=== PATIENT | female | born 2000 | race African-American/Black ===

== ENCOUNTER 2020-08-02 06:53 | Outpatient (NON) | payer BC, OTHER, SELFPAY ==
[2020-08-03 06:44] LABS: SARS-CoV-2 RNA PCR Negative
== END 2020-08-02 06:54 ==
PROVIDERS: PCP Nurse Practitioner Psychiatric/Mental Health; Visit Provider Registered Nurse
DX: R05 Cough (principal); R09.89 Other specified symptoms and signs involving the circulatory and respiratory systems; Z20.828 Contact with and (suspected) exposure to other viral communicable diseases
CPT/HCPCS: 87635; C9803; U0003

== ENCOUNTER 2020-11-05 12:36 | Emergency (ER) | payer BC, MEDICAID, SELFPAY ==
--- NOTE | ~2020-11-05 | XR_ITS ---
EXAMINATION: XR hip LT 2V w AP pelvis EXAM DATE: 11/05/2020 13:34 INDICATION: Initial encounter following injury, with pain of the pelvis, left hip. TECHNIQUE: Left hip frontal, 'frog leg' projections for interpretation. Frontal projection pelvis. There is no prior study for comparison. FINDINGS: Smooth left hip femoral head contour, no radiographic evidence of avascular necrosis. Ther e are no acute pelvic or left hip fractures or dislocations identified. There is no subcutaneous gas . The soft tissue is unremarkable. There are no radiopaque foreign bodies. IMPRESSION: No acute osseous findings. Reviewed, dictated and finalized at location B. [facility] [employer] IMPRESSION: No acute osseous findings.
--- NOTE | ~2020-11-05 | XR_ITS ---
EXAMINATION: XR lumbar spine min 4V EXAM DATE: 11/05/2020 13:34 INDICATION: Initial encounter following injury, with pain of the low back. Fall. TECHNIQUE: Lumber spine frontal, lateral, bilateral oblique projections. Coned down frontal and lat eral L5-S1 lumbar projections for interpretation. There is no prior study for comparison. FINDINGS: There is no spondylolysis. Mild mid lumbar disc disease with small Schmorl's nodes. The huey tebral body and disc heights are otherwise well maintained. The vertebral bodies are aligned in the A P dimension. Sacrum, sacroiliac joints, sacral arcuate lines are intact. Facet joints are unremarkab le. IMPRESSION: Mild mid lumbar disc disease. No acute findings. Reviewed, dictated and finalized at location B. [facility]
[2020-11-05 12:38] VITALS: BP 153/82; PULSE 98; RESP 20; TEMP 36.5; O2SAT 99
--- NOTE | 2020-11-05 13:04 | ED.GENADULT ---
HPI - General Adult General Chief complaint: Extremity Injury, Lower Stated complaint: Left Hip Pain Time Seen by Provider: 11/05/20 12:43 Source: RN notes reviewed History of Present Illness HPI narrative: Patient presents to emergency department from home for left lower back and left hip pain. Patient states that she was getting out of the shower today when the steam caused her to cough she states that when she was coughing she had sudden onset of sharp stabbing pain in the left lower back that radiated down her left leg she states she then tried to walk her bedroom and slipped and fell landing on her left hip causing increased pain in her left posterior hip states she does have a history of back pain and was recently at [facility] and she been prescribed steroids and muscle relaxers which she tried taking at home with no relief she denies striking her head she denies any abdominal pain denies any chance of she denies any numbness or weakness to the extremities and denies any bowel or bladder incontinence Related Data Allergies Allergy/AdvReac Type Severity Reaction Status Date / Time No Known Allergies Allergy Verified 11/05/20 12:44 Review of Systems Review of Systems: Narrative: Gen.: Denies fevers or chills ENT: Denies congestion Respiratory: Denies shortness of breath or cough CV: Denies chest pain or palpitations GI: Denies abdominal pain nausea, emesis or diarrhea denies bowel or bladder incontinence Musculoskeletal: see HPI Neuro: Denies numbness, tingling, weakness or focal weakness Skin: Denies rash Except as documented, all other systems reviewed and negative [facility] Past Medical History Medical History (Updated 11/05/20 @ 14:10 by Randy Cruz DO) Patient denies medical problems Social History Social History (Updated 11/05/20 @ 13:05 by Randy Cruz DO) Smoking status: Never smoker Gender identity (if verbalized by the patient): Female Exam Narrative: Exam Narrative: APPEARANCE: No acute distress, nontoxic, resting in bed Eyes: EOMI HEENT: Normocephalic, atraumatic, CV: Regular rate and rhythm without murmur RESPIRATORY: No respiratory distress. Clear to auscultation bilaterally. Abdomen: Soft and nontender, no rebound or guarding MUSCULOSKELETAl: Moves all extremities, no clubbing cyanosis or edema to palpation over left lateral posterior hip no swelling or ecchymosis pain with flexion greater than 45 degrees no tenderness of the left knee or ankle dorsalis pedis pulse 2+ neurovascular intact Back: No midline lumbar tenderness to palpation or step-off, tender to palpation over left paravertebral muscles L3-5 , pain increased with forward flexion NEURO: Awake and alert. Following commands, speech normal, no focal deficits, muscle strength 5 out of 5 bilateral lower extremities, bilateral patellar reflex 2+ SKIN:: Warm, dry. Normal Color no rash or lesions Course Course Emergency Course: Discussed with patient results of workup and diagnosis. Discussed need for follow-up with primary care, proper use of medication, and reasons to return to the emergency department. Patient understands and agrees to current treatment plan Vital Signs Vital signs: Vital Signs Temperature 97.7 F 11/05/20 12:38 Pulse Rate 98 11/05/20 12:38 Respiratory Rate 20 11/05/20 12:38 Blood Pressure 153/82 H 11/05/20 12:38 Pulse Oximetry 99 11/05/20 12:38 Temperature 97.7 F 11/05/20 12:38 Pulse Rate 98 11/05/20 12:38 Respiratory Rate 20 11/05/20 12:38 Blood Pressure 153/82 H 11/05/20 12:38 Pulse Oximetry 99 11/05/20 12:38 Medical Decision Making MDM Narrative Medical decision making narrative: Patient?s pain is positional and localized to back without signs of cord compression or cauda equina. Normal nuerologic exams. No fever noted and no significant risk factors for osteomyelitis or spinal epidural abscess. No symptoms or signs to suggest pain is referred fro
[2020-11-05] MEDS: HYDROcodone/acetaminophen (*CRX) 5-325 MG TABLET 1 TAB PO (13:19)
== END 2020-11-05 14:19 | disposition home or self-care (01) ==
PROVIDERS: Emergency Provider Emergency Medicine; PCP Nurse Practitioner Psychiatric/Mental Health
DX: S70.02XA Contusion of left hip, initial encounter (principal); M54.5 Low back pain; M51.9 Unspecified thoracic, thoracolumbar and lumbosacral intervertebral disc disorder; X50.9XXA Other and unspecified overexertion or strenuous movements or postures, initial encounter
CPT/HCPCS: 72110; 73502; 81025; 99284; A9270

== ENCOUNTER 2024-01-05 19:05 | Emergency (ER) | payer OTHER, SELFPAY ==
[2024-01-05 19:23] VITALS: BP 155/86; PULSE 92; RESP 18; TEMP 36.6; O2SAT 99
--- NOTE | 2024-01-05 19:48 | ED.GENADULT ---
HPI - General Adult General Chief complaint: Upper Respiratory Infection Stated complaint: sorethroat Source: patient Mode of arrival: ambulatory Limitations: no limitations History of Present Illness HPI narrative: Patient presents for evaluation of sore throat for last 3 days. She now has right sided otalgia, a headache, sinus congestion and nausea. No fever, chills, vomiting, diarrhea. She took ibuprofen for her headache. No recent sick contacts to her knowledge. She does not smoke. Related Data Allergies Allergy/AdvReac Type Severity Reaction Status Date / Time No Known Allergies Allergy Verified 01/05/24 19:08 Review of Systems Review of Systems: CONSTITUTIONAL: Denies fever, chills, or sweats. EYES: Denies visual changes, redness, or discharge. ENT: Reports sinus congestion, sore throat, right-sided otalgia. CARDIOVASCULAR: Denies chest pain, palpitations, or edema. RESPIRATORY: Reports cough. Denies dyspnea. GASTROINTESTINAL: Reports nausea. Denies abdominal pain, vomiting, or diarrhea. GENITOURINARY: Denies dysuria or hematuria. SKIN: Denies rash or itching. MUSCULOSKELETAL: Denies back pain, joint pain, or myalgia. NEUROLOGIC: Denies headache, numbness, dizziness, or weakness. PSYCHIATRIC: Denies anxiety or depression. [facility] Past Medical History Medical History PCOS (polycystic ovarian syndrome) Surgical History Surgical History No pertinent past surgical history Family History Family History Mother Family history non-contributory Social History Social History Smoking status: Never smoker Substance use: never Living arrangements: with family Gender identity (if verbalized by the patient): Female Spiritual care concerns: No Exam Narrative: GENERAL: Well-appearing, well-nourished, and in no acute distress. HEAD: Normocephalic, atraumatic. EYES: PERRLA and EOMI. ENT: Nares clear, no rhinorrhea or epistaxis. Mucous membranes moist. Bilateral tonsillar enlargement and erythema. No exudate. Uvula is midline. Right tympanic membrane is erythematous and bulging NECK: Supple. No adenopathy or masses. No carotid bruits or JVD CHEST: Clear to auscultation. No respiratory distress. No wheezes rales or rhonchi HEART: Regular rate and rhythm. No murmur heard. Normal peripheral pulses. ABDOMEN: Soft, nontender, nondistended, normal active bowel sounds. EXTREMITIES: Normal range of motion. No edema. SKIN: Warm, dry, no rash. NEURO: No focal deficits. Alert and oriented x3. PSYCH: Normal mood and affect. Course Course Emergency Course: This is a 23-year-old female who presented for evaluation of sore throat. Rapid strep negative. She has evidence of otitis media on exam. Will treat with Augmentin. Increase hydration. [id number] agents for symptom management. Follow up with primary provider. Go to the ER for worsening symptoms. Patient in agreement with plan of care Level of Care: Express Care Visit Vital Signs Vital signs: Vital Signs Temperature 36.6 C 01/05/24 19:23 Pulse Rate 92 01/05/24 19:23 Respiratory Rate 18 01/05/24 19:23 Blood Pressure 155/86 H 01/05/24 19:23 Pulse Oximetry 99 01/05/24 19:23 Oxygen Delivery Room Air 01/05/24 19:23 Temperature 36.6 C 01/05/24 19:23 Pulse Rate 92 01/05/24 19:23 Respiratory Rate 18 01/05/24 19:23 Blood Pressure 155/86 H 01/05/24 19:23 Pulse Oximetry 99 01/05/24 19:23 Oxygen Delivery Room Air 01/05/24 19:23 Medical Decision Making Vital Signs Vital Signs: Vital Signs Temperature 36.6 C 01/05/24 19:23 Pulse Rate 92 01/05/24 19:23 Respiratory Rate 18 01/05/24 19:23 Blood Pressure 155/86 H 01/05/24 19:23 Puls
== END 2024-01-05 19:35 | disposition home or self-care (01) ==
PROVIDERS: Emergency Provider Nurse Practitioner; PCP Nurse Practitioner
DX: H66.91 Otitis media, unspecified, right ear (principal); J02.9 Acute pharyngitis, unspecified; E28.2 Polycystic ovarian syndrome
CPT/HCPCS: 87081; 87880; 99213; G0463